=== PATIENT | male | born 1955 | race African-American/Black ===

== ENCOUNTER 2019-11-03 17:56 | Emergency (ER) | payer SELFPAY ==
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
[2019-11-03] MEDS ORDERED: Morphine 4 MG/ML VIAL ONE (18:50)
[2019-11-03] MEDS ORDERED: Ketorolac Tromethamine 30 MG/ML VIAL ONE (18:50)
[2019-11-03 19:11] LABS: #Basophils 0.1 thou/uL (0.0-0.2); #Eosinphils 0.3 thou/uL (0.0-0.7); #Lymphocytes 1.8 thou/uL (1.20-3.40); #Monocytes 0.5 thou/uL (0.11-0.59); %Basophils 1.2 % (0.0-1.0); %Lymphocytes 32.1 % (21.0-51.0); %Monocytes 8.4 % (0.0-10.0); %Neutrophils 52.4 % (42.0-75.0); Hemoglobin 15.1 g/dL (14.0-18.0); Mean Corpuscular HGB CONC 32.3 g/dL (32.0-36.0); Mean Corpuscular Hemoglobin 30.8 pg (27.0-31.0); Mean Corpuscular Volume 95.5 fL (78.0-98.0); Platelet Count 106 thou/uL (130-400); RBC Distribution Width 14.1 % (11.5-14.5); Red Blood Cell (RBC) Count 4.91 mill/uL (4.70-6.10); White Blood Cell (WBC) Count 5.7 thou/uL (4.8-10.8)
--- NOTE | 2019-11-03 19:13 | RAD ---
RIGHT FOOT RADIOGRAPHS THREE VIEWS: 11/03/19 PROVIDED CLINICAL HISTORY: Pain. FINDINGS: Metatarsus prima varus and hallux valgus with bunion formation noted. There is no evidence for fractu re or other acute osseous abnormality. If there is persistent clinical concern, conservative manageme nt and follow-up imaging are advised. IMPRESSION: As above. POS: [place]
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
[2019-11-03 19:25] LABS: ALT (SGPT) 8 U/L (8-55); AST (SGOT) 22 U/L (5-34); Alkaline Phosphatase 106 U/L (40-110); Anion Gap 12 mmol/L (10-20); BUN (Urea Nitrogen) 12 mg/dL (8.4-25.7); Bilirubin, Total 0.7 mg/dL (0.2-1.2); Calc. Creatinine Clearance 0 mL/min (70-130); Carbon Dioxide 23 mmol/L (23-31); Chloride 106 mmol/L (98-107); Estimated GFR-MDRD 62; Globulin 3.1 g/dL (2.4-3.5); Glucose 93 mg/dL (80-115); Potassium 3.7 mmol/L (3.5-5.1); Protein, Total 7.1 g/dL (5.8-8.1); Sodium 137 mmol/L (136-145)
[2019-11-03 19:27] LABS: Platelet Morphology Comment Appears Decreased; RBC Morphology Normal
== END 2019-11-03 21:45 | disposition home or self-care (01) ==
LOC: ERS 17:56
DX: S90.31XA Contusion of right foot, initial encounter (principal); F41.9 Anxiety disorder, unspecified; F17.210 Nicotine dependence, cigarettes, uncomplicated; V89.2XXA Person injured in unspecified motor-vehicle accident, traffic, initial encounter
CPT/HCPCS: 36415; 71045; 80053; 85025; 96372; 99284; J1885; J2270